=== PATIENT | female | born 1965 | race Caucasian/White ===

== ENCOUNTER 2019-10-09 07:06 | Day surgery (SDC) | payer BC ==
[2019-10-09] MEDS ORDERED: Sodium Chloride 0.9% 10 ML Syringe FLUSH PRN (07:15)
[2019-10-09] MEDS ORDERED: Lactated Ringers 1,000 ML IV SCH (07:15)
[2019-10-09] MEDS ORDERED: Lidocaine 1%/Sod Bicarbonate in NS 8.4% 1 ML Syringe IDERM PRN (07:15)
[2019-10-09] MEDS ORDERED: fentaNYL 100 MCG/2 ML SDV ONE (07:19)
[2019-10-09] MEDS ORDERED: Propofol 200 MG/20 ML SDV ONE (07:19)
[2019-10-09] MEDS ORDERED: Lidocaine 1% 4 ML ONE (07:20)
--- NOTE | 2019-10-09 08:03 | PCM.PREANE ---
Preanesthetic Assessment - Anesthesia/Transfusion/Family Hx Anesthesia History: Prior Anesthesia Without Reaction Family History of Anesthesia Reaction: No Transfusion History: No Prior Transfusion(s) - Review of Systems General: No Symptoms Pulmonary: No Symptoms Cardiovascular: No Symptoms, Other (Hypertension today. 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 Hypertensive prior to her last colonoscopy. ) Gastrointestinal: No Symptoms Neurological: Paresthesia (Worse in feet, then legs, fingertips. ) Other: Reports: None (Morbid Obesity), Anxiety - Physical Assessment NPO Status Date: 10/08/19 NPO Status Time: 19:00 Vital Signs: Last Vital Signs Temp 36.9 C 10/09/19 07:10 Pulse 83 10/09/19 07:10 Resp 16 10/09/19 07:10 BP 167/101 H 10/09/19 07:25 Pulse Ox 96 10/09/19 07:10 Height: 1.63 m Weight: 117.48 kg ASA Class: 3 Mental Status: Alert & Oriented x3 Airway Class: Mallampati = 2 Dentition: Reports: Normal Dentition Thyro-Mental Finger Breadths: 3 Mouth Opening Finger Breadths: 3 ROM/Head Extension: Full Lungs: Clear to Auscultation, Normal Respiratory Effort Cardiovascular: Regular Rate, Regular Rhythm - Allergies Allergies/Adverse Reactions: Allergies Allergy/AdvReac Type Severity Reaction Status Date / Time hydrocodone Allergy Nausea Verified 10/08/19 13:55 morphine Allergy Nausea Verified 10/08/19 13:55 - Anesthesia Plan Pre-Op Medication Ordered: Anxiolytic - Acknowledgements Anesthesia Type Planned: MAC Pt an Appropriate Candidate for the Planned Anesthesia: Yes Alternatives and Risks of Anesthesia Discussed w Pt/Guardian: Yes Pt/Guardian Understands and Agrees with Anesthesia Plan: Yes PreAnesthesia Questionnaire HEENT History: Reports: Impaired Vision, Other (See Below) Other HEENT History: wears glasses Cardiovascular History: Reports: High Cholesterol Respiratory History: Reports: None Gastrointestinal History: Reports: Colon Polyp MECHANICAL INTERN History: Reports: None Musculoskeletal History: Reports: None Neurological History: Reports: None Psychiatric History: Reports: None Endocrine/Metabolic History: Reports: None, Obesity/BMI 30+ Hematologic History: Reports: None Immunologic History: Reports: None Oncologic (Cancer) History: Reports: Breast, Other (See Below) Other Oncologic History: skin graft to breast, breast reconstruction, history of breast debridement Dermatologic History: Reports: None - Past Surgical History Head Surgeries/Procedures: Reports: None Cardiovascular Surgical History: Reports: None Respiratory Surgical History: Reports: None GI Surgical History: Reports: Appendectomy, Cholecystectomy, Colonoscopy Female Surgical History: Reports: Breast Biopsy, Breast Reconstruction, Tubal Ligation Male Surgical History: Reports: None Endocrine Surgical History: Reports: None Neurological Surgical History: Reports: None Musculoskeletal Surgical History: Reports: None, Other (See Below) Oncologic Surgical History: Reports: Mastectomy Dermatological Surgical History: Reports: None - SUBSTANCE USE Smoking Status *Q: Former Smoker Recreational Drug Use History: No - HOME MEDS Home Medications: Home Meds Acetaminophen [Tylenol] 650 mg PO DAILY 10/08/19 [History] Ondansetron [Zofran Odt] 8 mg PO Q8H PRN 10/08/19 [History] RX: Anastrozole [Arimidex] 1 mg PO DAILY 10/08/19 [History] RX: Celecoxib 200 mg PO DAILY 10/08/19 [History] RX: Lidocaine 2% [Xylocaine 2% Jelly] 1 dose TOP ASDIRECTED PRN 10/08/19 [ History] RX: Rosuvastatin Calcium 20 mg PO DAILY 10/08/19 [History] RX: oxyCODONE 5 - 10 mg PO Q4H PRN 10/08/19 [History] - CURRENT (IN HOUSE) MEDS Current Meds: Current Medications Lactated Ringer's (Ringers, Lactated) 1,000 mls @ 125 mls/hr IV ASDIRECTED WILLIAN Stop: 10/09/19 23:00 Last Admin: 10/09/19 07:35 Dose: 125 mls/hr Lidocaine/Sodium Bicarbonate (Buffered Lidocaine 1% In Ns 8.4%) 0.25 ml IDERM ONETIME PRN PRN Reason: Prior to IV Start Stop: 10/09/19 18:00 Sodium Chloride (Saline Flush) 10 ml FLUSH ASDIRECTED PRN PRN Reason: Keep Vein Open Stop: 10/09/19 18:00 Discontinued Medications Fentanyl (Sublimaze) Confirm Administered Dose 100 mcg .ROUTE .STK-MED ONE Stop: 10/09/19 07:20 Lidocaine HCl (Xylocaine-Mpf 1%) Confirm Administered Dose 4 mls @ as directed .ROUTE .STK-MED ONE Stop: 10/09/19 07:21 Propofol (Diprivan 20 Ml) Confirm Administered Dose 600 mg .ROUTE .[facility] ONE Stop: 10/09/19 07:20
[2019-10-09] MEDS ORDERED: Ondansetron 4 MG/2 ML SDV ONE (08:18)
[2019-10-09] MEDS ORDERED: Midazolam 1 MG/ML 2 ML SDV ONE (08:58)
--- NOTE | 2019-10-09 09:09 | PCM.OPNOTE ---
- General Post-Op/Procedure Note Date of Surgery/Procedure: 10/09/19 Operative Procedure(s): incomplete colonoscopy Findings: normal anatomy, unable to reach cecum Pre Op Diagnosis: history of polyp Post-Op Diagnosis: normal colon Anesthesia Technique: MAC Primary Surgeon: Monica Thompson Anesthesia Provider: Martita Lipscomb Pathology: none Complications: none apparent Condition: Good
--- NOTE | 2019-10-09 09:13 | PCM.PRNOTE ---
- Free Text/Narrative Note: Operative Report Date of Surgery/Procedure: October 09, 2019 Operative Procedure: Incomplete Colonoscopy Pre Op Diagnosis: History of colon polyp Post-Op Diagnosis: Normal colon Surgeon: Monica Thompson Anesthesia Technique: MAC Anesthesia Provider: Martita Lipscomb CRNA IV Fluid Replacement, Intraop: See anesthesia record Output, Urine Amount: 0cc EBL : 0cc Findings: Normal colon Specimens: None Indication: The patient is a 54 year-old lady who presented to the outpatient clinic requesting colorectal cancer screening. The patient has a history of on retrievable colon polyp We discussed the procedure of a screening colonoscopy including the polypectomy and biopsy. Risks of bleeding and perforation were discussed, the patient understood and wished to proceed. Written and consent was obtained Description of the procedure: The patient was brought to the endoscopy suite and placed in the left lateral decubitus position. Appropriate monitors were applied. The patient was given MAC anesthesia. An anorectal examination was performed, revealing no abnormal findings. The scope was placed into the rectum and advanced to the proximal ascending colon with moderate difficulty requiring change in patient position to supine, abdominal pressure, and withdrawal and reinsertion of the colonoscope. Despite these maneuvers, we could not enter the cecum, however, we were able to visualize the ileocecal valve. At this point, the scope was withdrawn, paying careful attention to the mucosa. The patient had adequate bowel prep, allowing for visualization of polyps greater than 5 mm. Low abnormality was noted. In the rectum, the scope was retroflexed and no abnormalities were noted, except for some hemorrhoidal tissue. The scope was placed back in the lumen and the excess air was aspirated. The patient tolerated the procedure well. Complications: none apparent Condition: Good, transported to PACU in stable condition Monica Thompson MD General Surgery
--- NOTE | 2019-10-09 10:42 | PCM48HPAN ---
Post Anesthesia Note - EVALUATION WITHIN 48HRS OF ANESTHETIC Vital Signs in Normal Range: Yes Patient Participated in Evaluation: Yes Respiratory Function Stable: Yes Airway Patent: Yes Cardiovascular Function Stable: Yes Hydration Status Stable: Yes Pain Control Satisfactory: Yes Nausea and Vomiting Control Satisfactory: Yes Mental Status Recovered: Yes Vital Signs: Last Vital Signs Temp 36.9 C 10/09/19 09:02 Pulse 73 10/09/19 09:32 Resp 20 10/09/19 09:32 BP 153/96 H 10/09/19 09:32 Pulse Ox 98 10/09/19 09:32
== END 2019-10-09 09:57 | disposition home or self-care (01) ==
LOC: JD.SDS 07:06
PROVIDERS: ATTEND Surgery
DX: Z09 Encounter for follow-up examination after completed treatment for conditions other than malignant neoplasm (principal); K64.9 Unspecified hemorrhoids; K63.89 Other specified diseases of intestine; E78.00 Pure hypercholesterolemia, unspecified; Z88.5 Allergy status to narcotic agent; Z86.010 Personal history of colon polyps; Z87.891 Personal history of nicotine dependence; Z85.3 Personal history of malignant neoplasm of breast; Z80.0 Family history of malignant neoplasm of digestive organs; Z79.1 Long term (current) use of non-steroidal anti-inflammatories (NSAID); Z79.899 Other long term (current) drug therapy
CPT/HCPCS: 45378; J1642; J2001; J2250; J2405; J2704; J3010; J7120; 00812

== ENCOUNTER → 2020-03-12 | Day surgery (SDC) | payer BC ==
[~2020-03-12] MED LIST: Bupivacaine 0.25% 10 ML SDV ONE; Lactated Ringers 1,000 ML IV SCH; Lidocaine 1% 30 ML SDV ONE; Lidocaine 1% 4 ML ONE; Lidocaine 1%/Sod Bicarbonate in NS 8.4% 1 ML Syringe IDERM PRN; Midazolam 1 MG/ML 2 ML SDV ONE; Ondansetron 4 MG/2 ML SDV ONE; Propofol 200 MG/20 ML SDV ONE; Sodium Chloride 0.9% 10 ML Syringe FLUSH PRN; Sodium Chloride 0.9% 100 ML ONE; ceFAZolin 1 GM Vial ONE; fentaNYL 100 MCG/2 ML SDV ONE
--- NOTE | 2020-03-12 09:59 | PCM.PREANE ---
Preanesthetic Assessment - Procedure Proposed Procedure: Left thumb A1 jose angel release - Anesthesia/Transfusion/Family Hx Anesthesia History: Prior Anesthesia Reaction Type of Anesthesia Reaction: Excessive Nausea/Vomiting (with general anesthetic for breast surgery) Family History of Anesthesia Reaction: No Transfusion History: No Prior Transfusion(s) - Review of Systems General: No Symptoms Pulmonary: No Symptoms Cardiovascular: Other (Hypertensive today. Not usually high other than when in the hospital. ) Gastrointestinal: No Symptoms Neurological: Other (Paresthesia from chemotherapy) Other: Reports: None (Morbid Obesity BMI 48.), Anxiety - Physical Assessment NPO Status Date: 03/11/20 NPO Status Time: 20:00 ASA Class: 3 Mental Status: Alert & Oriented x3 Airway Class: Mallampati = 2 Dentition: Reports: Normal Dentition Thyro-Mental Finger Breadths: 3 Mouth Opening Finger Breadths: 3 ROM/Head Extension: Full Lungs: Clear to Auscultation, Normal Respiratory Effort Cardiovascular: Regular Rate, Regular Rhythm - Lab Values: Laboratory Last Values SARS Virus RNA (PCR) Negative (NEGATIVE) 03/11/20 13:29 MRSA (PCR) Negative 03/10/20 09:30 - Allergies Allergies/Adverse Reactions: Allergies Allergy/AdvReac Type Severity Reaction Status Date / Time hydrocodone Allergy Nausea Verified 03/11/20 15:13 morphine Allergy Nausea Verified 03/11/20 15:13 - Acknowledgements Anesthesia Type Planned: MAC Pt an Appropriate Candidate for the Planned Anesthesia: Yes Alternatives and Risks of Anesthesia Discussed w Pt/Guardian: Yes Pt/Guardian Understands and Agrees with Anesthesia Plan: Yes PreAnesthesia Questionnaire HEENT History: Reports: Impaired Vision, Other (See Below) Other HEENT History: wears glasses Cardiovascular History: Reports: High Cholesterol Respiratory History: Reports: None Gastrointestinal History: Reports: Colon Polyp Genitourinary History: HOUSE COORDINATOR History: Reports: None Musculoskeletal History: Reports: None Neurological History: Reports: None Psychiatric History: Reports: None Endocrine/Metabolic History: Reports: Obesity/BMI 30+ Hematologic History: Reports: None Immunologic History: Reports: None Oncologic (Cancer) History: Reports: Breast, Other (See Below) Other Oncologic History: skin graft to breast, breast reconstruction, history of breast debridement Dermatologic History: Reports: None - Past Surgical History Head Surgeries/Procedures: Reports: None HEENT Surgical History: Reports: None Cardiovascular Surgical History: Reports: None Respiratory Surgical History: Reports: None GI Surgical History: Reports: Appendectomy, Cholecystectomy, Colonoscopy Female Surgical History: Reports: Breast Biopsy, Breast Reconstruction, Tubal Ligation Male Surgical History: Reports: None Endocrine Surgical History: Reports: None Neurological Surgical History: Reports: None Musculoskeletal Surgical History: Reports: None, Other (See Below) Oncologic Surgical History: Reports: Mastectomy Dermatological Surgical History: Reports: None - SUBSTANCE USE Smoking Status *Q: Former Smoker Recreational Drug Use History: No - HOME MEDS Home Medications: Home Meds Anastrozole [Arimidex] 1 mg PO DAILY 10/08/19 [History] Rosuvastatin Calcium 20 mg PO DAILY 10/08/19 [History] Ubidecarenone [Coq-10] 100 mg PO DAILY 03/11/20 [History] - CURRENT (IN HOUSE) MEDS Current Meds: Current Medications Lactated Ringer's (Ringers, Lactated) 1,000 mls @ 125 mls/hr IV ASDIRECTED WILLIAN Stop: 03/12/20 23:00 Lidocaine/Sodium Bicarbonate (Buffered Lidocaine 1% In Ns 8.4%) 0.25 ml IDERM ONETIME PRN PRN Reason: Prior to IV Start Stop: 03/12/20 18:00 Sodium Chloride (Saline Flush) 10 ml FLUSH ASDIRECTED PRN PRN Reason: Keep Vein Open Stop: 03/12/20 18:00
--- NOTE | 2020-03-12 10:56 | PCM48HPAN ---
Post Anesthesia Note - EVALUATION WITHIN 48HRS OF ANESTHETIC Vital Signs in Normal Range: Yes Patient Participated in Evaluation: Yes Respiratory Function Stable: Yes Airway Patent: Yes Cardiovascular Function Stable: Yes Hydration Status Stable: Yes Pain Control Satisfactory: Yes Nausea and Vomiting Control Satisfactory: Yes Mental Status Recovered: Yes Vital Signs: Last Vital Signs Temp 37.0 C 03/12/20 09:10 Pulse 76 03/12/20 09:10 Resp 19 03/12/20 09:10 BP 165/92 H 03/12/20 09:10 Pulse Ox 97 03/12/20 09:10
--- NOTE | 2020-03-16 11:39 | PCM.OPNOTE ---
- General Post-Op/Procedure Note Date of Surgery/Procedure: 03/12/20 Operative Procedure(s): left trigger thumb release Pre Op Diagnosis: left thumb stenosing tenosynovitis Post-Op Diagnosis: Same Anesthesia Technique: Local, MAC Primary Surgeon: Tommie Chen Anesthesia Provider: Martita Lipscomb Deliverer Pharmacy: [facility] EBL in mLs: 5 Complications: None Condition: Good
--- NOTE | 2020-03-16 12:24 | OR ---
DATE OF OPERATION: 03/12/2020 SURGEON: Tommie Chen MD OPERATION PERFORMED: Left trigger thumb release. PREOPERATIVE DIAGNOSIS: Left thumb stenosing tenosynovitis. POSTOPERATIVE DIAGNOSIS: Left thumb stenosing tenosynovitis. ANESTHESIA: Local MAC with spinal. ANESTHESIA PROVIDER: Candy Barajas. TELEVISION EQUIPMENT OPERATOR: Gabbi Abarca PA-C. ESTIMATED BLOOD LOSS: Less than 5 mL. COMPLICATIONS: None. CONDITION: Stable. DESCRIPTION OF PROCEDURE: The patient was identified in the preop holding area. Proper site was marked and identified by the surgeon. The patient was taken back to the operating theater where after adequate anesthesia, the patient's left upper extremity was sterilely prepped and draped in the usual sterile fashion. OR time-out was performed. The patient received 2 g of IV Ancef. Incisional site was identified and 1% lidocaine without epinephrine and 0.25% Marcaine without epinephrine were injected over the incisional site to the left thumb. Esmarch was then used as a tourniquet on the forearm. Incision was made. Blunt dissection was taken down to the A1 jose angel. Swanton blade was then used to release the A1 jose angel distally. It was found to be adequately resected stopping short of the A2 jose angel. A tenotomy was then used to release it proximally taking care to protect the neurovascular bundles. It was found to be adequately released both proximally and distally. The tendon showed no significant adhesions. Adequate saline was irrigated through the wound. 4-0 nylon simple sutures were applied. The patient was sent to PACU in stable condition. MMODAL /[id number]
== END | disposition home or self-care (01) ==
LOC: JD.SDS 09:13
PROVIDERS: ATTEND Orthopaedic Surgery
DX: M65.312 Trigger thumb, left thumb (principal); M65.88 Other synovitis and tenosynovitis, other site; R53.83 Other fatigue; R06.83 Snoring; E78.5 Hyperlipidemia, unspecified; F41.9 Anxiety disorder, unspecified; E78.00 Pure hypercholesterolemia, unspecified; E66.01 Morbid (severe) obesity due to excess calories; R79.89 Other specified abnormal findings of blood chemistry; Z88.5 Allergy status to narcotic agent; Z87.891 Personal history of nicotine dependence; Z79.899 Other long term (current) drug therapy; Z85.3 Personal history of malignant neoplasm of breast; Z90.13 Acquired absence of bilateral breasts and nipples; Z68.42 Body mass index [BMI] 45.0-49.9, adult
CPT/HCPCS: 26055; 87635; 87641; J0690; J2001; J2250; J2405; J2704; J3010; J3490; J7050; J7120; 01810; U0002